=== PATIENT | female | born 1985 | race Caucasian/White ===

== ENCOUNTER → 2016-10-06 | Outpatient (CLI) | payer OTHER, MEDICAID ==
[2016-10-06 20:24] LABS: CONTROL LINE HCG INT CTR LINE PRESENT
== END ==
LOC: M WUC 15:49
PROVIDERS: ATTEND Family Medicine
DX: N92.6 Irregular menstruation, unspecified (principal)
CPT/HCPCS: 36415; 84703; G0463

== ENCOUNTER → 2016-10-23 | Outpatient (CLI) | payer OTHER, MEDICAID ==
[2016-10-23 16:56] LABS: BASO % 0.5 % (0.0-1.0); EOS # 0.2 K/mm3 (0.0-0.50); EOS % 2.1 % (0.0-3.0); LARGE UNSTAINED CELL # 0.1 K/mm3 (0.0-0.4); LARGE UNSTAINED CELL % 1.8 % (0.0-4.0); MEAN CORPUSCULAR HEMOGLOBIN 30.4 pg (27.0-33.0); MEAN CORPUSCULAR HGB CONC 33.2 g/dl (32.0-36.5); MEAN CORPUSCULAR VOLUME 91.4 fl (80.0-96.0); MONO # 0.4 K/mm3 (0.0-0.8); MONO % 5.4 % (0.0-5.0); NEUTROPHILS # 4.9 K/mm3 (1.8-7.7); NEUTROPHILS % 65.3 % (36.0-66.0); PLATELET COUNT, AUTOMATED 246 k/mm3 (150-450); RED CELL DISTRIBUTION WIDTH 12.7 % (11.5-14.5); WHITE BLOOD COUNT 7.5 K/mm3 (4.0-10.0)
[2016-10-26 11:46] LABS: HBsAg Prenatal NEGATIVE (NEGATIVE)
== END ==
LOC: M WUC 10:48
PROVIDERS: ATTEND Obstetrics & Gynecology
DX: Z36 Encounter for antenatal screening of mother (principal); Z3A.00 Weeks of gestation of pregnancy not specified

== ENCOUNTER → 2016-11-24 | Outpatient (REF) | payer OTHER, MEDICAID | LOC: M LAB REF 17:20 | PROVIDERS: ATTEND Specialist | DX: Z36 Encounter for antenatal screening of mother (principal); Z3A.00 Weeks of gestation of pregnancy not specified ==

== ENCOUNTER → 2017-03-10 | Outpatient (CLI) | payer MEDICAID ==
--- NOTE | 2017-03-10 14:59 | REP ---
Clinical: Anatomical evaluation. Comparison: 01/18/2017 . Findings: Examination demonstrates a single live intrauterine in cephalic presentation. motion is identified by technologist. Placenta is noted anteriorly and grade one without evidence for placenta previa or abruption. Amniotic fluid volume is normal. Cervix measures 3.5 cm in length and appears closed. No evidence for nuchal cord. Gestational age by LMP 26 weeks 4 days with JEZ 06/12/2017 . Gestational age by current measurements 27 weeks 3 days with JEZ 06/06/2017 . FHR equals 136 beats per minute. Estimated weight 1096 grams ( 68th percentile). Anatomical assessment demonstrates normal structures including cranium, choroid plexus, cavum, cerebellum/posterior fossa, facial features, lungs, four-chamber heart/ventricular outflow tracts, diaphragm, stomach, cord insertion/three-vessel cord, kidneys/bladder, and extremities. Impression: Single live intrauterine in cephalic presentation demonstrating appropriate interval growth. In conjunction with prior examination anatomical assessment is complete and normal. Signed by Ludin Tapia MD 03/10/2017 02:51 P
== END ==
LOC: M RAD 14:07
PROVIDERS: ATTEND Advanced Practice Midwife
DX: Z34.82 Encounter for supervision of other normal pregnancy, second trimester (principal); Z3A.26 26 weeks gestation of pregnancy

== ENCOUNTER → 2017-04-15 | Outpatient (REF) | payer OTHER, MEDICAID | LOC: M LAB REF 17:12 | DX: Z34.83 Encounter for supervision of other normal pregnancy, third trimester (principal) ==

== ENCOUNTER → 2017-04-16 | Outpatient (CLI) | payer OTHER, MEDICAID ==
[2017-04-16 13:58] LABS: BASO % 0.2 % (0.0-1.0); EOS # 0.4 10^3/uL (0.0-0.50); EOS % 2.7 % (0.0-3.0); HEMATOCRIT 35.6 % (36.0-47.0); HEMOGLOBIN 11.9 g/dl (12.0-16.0); IMMATURE GRANULOCYTE # 0.1 10^3/uL (0-0); IMMATURE GRANULOCYTE % 0.8 % (0-0); LYMPH # 2.6 10^3/uL (1.5-4.5); LYMPH % 19.9 % (24.0-44.0); MEAN CORPUSCULAR HGB CONC 33.4 g/dl (32.0-36.5); MEAN CORPUSCULAR VOLUME 86.8 fl (80.0-96.0); MONO # 0.7 10^3/uL (0.0-0.8); MONO % 5.1 % (0.0-5.0); NEUTROPHILS # 9.4 10^3/uL (1.8-7.7); NEUTROPHILS % 71.3 % (36.0-66.0); PLATELET COUNT, AUTOMATED 235 10^3/uL (150-450); RED CELL DISTRIBUTION WIDTH 12.6 % (11.5-14.5); WHITE BLOOD COUNT 13.2 10^3/uL (4.0-10.0)
[2017-04-16 14:32] LABS: GLUCOSE CHALLENGE TEST 1 HOUR 125 MG/DL (LESS THAN 140)
== END ==
LOC: M SMT 09:45
DX: Z34.83 Encounter for supervision of other normal pregnancy, third trimester (principal)
CPT/HCPCS: 82950

== ENCOUNTER → 2017-05-17 | Outpatient (REF) | payer OTHER, MEDICAID | LOC: M LAB REF 16:59 | DX: Z34.83 Encounter for supervision of other normal pregnancy, third trimester (principal) ==

== ENCOUNTER → 2017-05-21 | Outpatient (CLI) | payer OTHER, MEDICAID | LOC: M RAD 14:10 | DX: Z34.83 Encounter for supervision of other normal pregnancy, third trimester (principal) ==

== ENCOUNTER 2017-06-11 15:46 | Inpatient (IN) | payer OTHER, MEDICAID ==
[2017-06-11] MEDS: OXYTOCIN DRIP 30 UNITS in APPROPRIATE DILUENT 1 EA IV ×2 (16:57→23:52)
[2017-06-11] MEDS: LR 1,000 ML IV (16:57)
[2017-06-11 17:29] LABS: HEMATOCRIT 35.5 % (36.0-47.0); HEMOGLOBIN 12.1 g/dl (12.0-15.5); MEAN CORPUSCULAR HEMOGLOBIN 29.2 pg (27.0-33.0); MEAN CORPUSCULAR HGB CONC 34.1 g/dl (32.0-36.5); MEAN CORPUSCULAR VOLUME 85.7 fl (80.0-96.0); PLATELET COUNT, AUTOMATED 242 10^3/uL (150-450); RED BLOOD COUNT 4.14 10^6/uL (4.00-5.40); RED CELL DISTRIBUTION WIDTH 13.7 % (11.5-14.5); WHITE BLOOD COUNT 12.2 10^3/uL (4.0-10.0)
[2017-06-11] MEDS ORDERED: FENTANYL 2MCG/ML ROPIVACAINE 0.2% IN 0.9% NACL 200ML IVBAG As Ordered (21:29)
[2017-06-11] MEDS ORDERED: EPIDURAL COMMENT XX (23:00)
[2017-06-11] MEDS ORDERED: NALOXONE INJ 0.4 MG/1 ML VIAL (J2310) IV (23:00)
[2017-06-11] MEDS ORDERED: FENTANYL/ROPIVACAINE/NACL BAG 200 ML EPIDURAL (23:00)
[2017-06-11] MEDS ORDERED: REFRIGERATOR IV KEYS XX (23:00)
[2017-06-11] MEDS ORDERED: LACTATED RINGER'S 1000 ML IV (23:00)
[2017-06-11] MEDS ORDERED: ONDANSETRON 4MG/2ML VIAL (J2405) IV (23:00)
[2017-06-11] MEDS ORDERED: EPIDURAL/PCA KEYS XX (23:00)
[2017-06-11] MEDS ORDERED: diphenhydrAMINE INJ 50MG/ML VIAL (J1200) IV (23:00)
[2017-06-11] MEDS ORDERED: ePHEDrine SULFATE 25 MG/5 ML(5MG/ML) SYRINGE IV (23:00)
[2017-06-12] MEDS ORDERED: METHYLERGONOVINE MALEATE 0.2 MG TAB PO
[2017-06-12] MEDS ORDERED: IBUPROFEN 800 MG TAB PO
[2017-06-12] MEDS ORDERED: ACETAMINOPHEN 500 MG TAB PO
[2017-06-12] MEDS ORDERED: RHOGAM 300 MCG (1500 IU) INJ (J2790) IM
[2017-06-12] MEDS ORDERED: DOCUSATE SODIUM 100 MG CAP PO
[2017-06-12] MEDS: METHYLERGONOVINE MALEATE 0.2 MG/ML VIAL (J2210) IM
[2017-06-12] MEDS ORDERED: MEASLES,MUMPS,RUBELLA VACCINE INJ (MMR-II) (90707) SC
[2017-06-12] MEDS ORDERED: DIBUCAINE 1% OINTMENT 30GM TOP
[2017-06-12] MEDS: PRENATAL VITAMINS CHEWABLE TABLET PO (09:24)
[2017-06-13] MEDS: PRENATAL VITAMINS CHEWABLE TABLET PO (09:00)
== END 2017-06-13 11:20 | disposition home or self-care (01) | DRG 767 ==
LOC: M LDI 15:46 → M OBS 06-12 02:27
PROVIDERS: Advanced Practice Midwife
PROC: 10D17Z9 Manual Extraction of Products of Conception, Retained, Via Natural or Artificial Opening (ICD-10-PCS; principal; 2017-06-11)
PROC: 10E0XZZ Delivery of Products of Conception, External Approach (ICD-10-PCS; 2017-06-11)
PROC: 10907ZC Drainage of Amniotic Fluid, Therapeutic from Products of Conception, Via Natural or Artificial Opening (ICD-10-PCS; 2017-06-11)
PROC: 3E033VJ Introduction of Other Hormone into Peripheral Vein, Percutaneous Approach (ICD-10-PCS; 2017-06-11)
DX: O36.63X0 Maternal care for excessive fetal growth, third trimester, not applicable or unspecified (principal); Z37.0 Single live birth; Z3A.39 39 weeks gestation of pregnancy; O73.1 Retained portions of placenta and membranes, without hemorrhage

== ENCOUNTER → 2019-05-30 | Outpatient (REF) | payer OTHER ==
[~2019-05-30] MED LIST: CALC500C PO; IBUP-1114 PO; MAPA500T2 PO; PRENTAB9 PO
[2019-05-30 18:08] LABS: HEMATOCRIT 39.6 % (36.0-47.0); HEMOGLOBIN 12.9 g/dl (12.0-15.5); MEAN CORPUSCULAR HEMOGLOBIN 27.5 pg (27.0-33.0); MEAN CORPUSCULAR HGB CONC 32.6 g/dl (32.0-36.5); MEAN CORPUSCULAR VOLUME 84.4 fl (80.0-96.0); PLATELET COUNT, AUTOMATED 283 10^3/uL (150-450); RED BLOOD COUNT 4.69 10^6/uL (4.00-5.40)
[2019-05-30 19:26] LABS: CHLAMYDIA DNA AMPLIFICATION NEGATIVE (NEGATIVE); GC DNA AMPLIFICATION NEGATIVE (NEGATIVE)
[2019-05-31 10:12] LABS: HEPATITIS B SURFACE ANTIGEN NEGATIVE (NEGATIVE); HEPATITIS C VIRUS ABY INDEX < 0.0 INDEX (<0.8); HIV 1&2 SCREEN CENTAUR NEGATIVE (NEGATIVE); RUBELLA IgG QUALITATIVE IMMUNE (IMMUNE)
== END ==
LOC: M PLALAB 13:41
PROVIDERS: ATTEND Advanced Practice Midwife
DX: Z34.91 Encounter for supervision of normal pregnancy, unspecified, first trimester (principal)

== ENCOUNTER → 2019-07-17 | Outpatient (CLI) | payer OTHER ==
--- NOTE | 2019-07-18 05:53 | REP ---
Clinical: Anatomical evaluation. Comparison: None Findings: Examination demonstrates a single live intrauterine in variable presentation. motion is identified by technologist. Placenta is noted right/posterolateral and grade I without evidence for placenta previa or abruption. Amniotic fluid volume is normal. Cervix measures 3.3 in length and appears closed. No evidence for nuchal cord. Gestational age by current measurements 18 weeks 1 day with JEZ 12/17/2019 . FHR equals 156 beats per minute. BPD 4.0 cm 18 weeks 0 days HC 14.7 cm 17 weeks 6 days AC 12.7 cm 18 weeks 2 days FL 2.5 cm 17 weeks 4 days HL 2.8 cm 19 weeks 1 day HC/AC ratio 1.16 Estimated weight 216 grams ( 39th percentile). Anatomical assessment demonstrates normal structures including cranium, cavum, cerebellum/posterior fossa, facial features, lungs, four-chamber heart/ventricular outflow tracts, diaphragm, stomach, cord insertion/three-vessel cord, kidneys/bladder, spine, and extremities. 3.5 mm left choroid plexus cyst noted. Impression: 1. Single live intrauterine in variable presentation demonstrating appropriate estimated weight. 2. Anatomical assessment is essentially complete and normal although left choroid plexus cyst is identified.
== END ==
LOC: M WHC 13:28
PROVIDERS: ATTEND Specialist
DX: Z34.82 Encounter for supervision of other normal pregnancy, second trimester (principal); Z36.89 Encounter for other specified antenatal screening; Z3A.18 18 weeks gestation of pregnancy

== ENCOUNTER → 2019-09-20 | Outpatient (REF) | payer OTHER ==
[~2019-09-20] MED LIST changes: +IBUP80TA PO; +TUMS750C5 PO
[2019-09-20 11:39] LABS: HEMOGLOBIN 9.9 g/dl (12.0-15.5); MEAN CORPUSCULAR HEMOGLOBIN 27.3 pg (27.0-33.0); MEAN CORPUSCULAR HGB CONC 31.9 g/dl (32.0-36.5); MEAN CORPUSCULAR VOLUME 85.4 fl (80.0-96.0); PLATELET COUNT, AUTOMATED 250 10^3/uL (150-450); RED BLOOD COUNT 3.63 10^6/uL (4.00-5.40); WHITE BLOOD COUNT 8.8 10^3/uL (4.0-10.0)
== END ==
LOC: M PLALAB 08:52
PROVIDERS: ATTEND Advanced Practice Midwife
DX: Z34.82 Encounter for supervision of other normal pregnancy, second trimester (principal)

== ENCOUNTER → 2019-11-14 | Outpatient (REF) | payer OTHER | LOC: M WHC 14:00 | PROVIDERS: ATTEND Advanced Practice Midwife | DX: Z34.83 Encounter for supervision of other normal pregnancy, third trimester (principal) ==

== ENCOUNTER 2019-12-08 11:42 | Inpatient (IN) | payer OTHER ==
[~2019-12-08] VITALS: Ht 152.4 cm; Wt 92.2 kg
[2019-12-08] VITALS (18 sets, daily range): BP systolic 102–123; BP diastolic 57–80
[~2019-12-08 11:42] MED LIST changes: -IBUP80TA PO; -TUMS750C5 PO
[2019-12-08] MEDS ORDERED: TUMS750C5 PO (11:55)
[2019-12-08] MEDS ORDERED: LACTATED RINGER'S 1000 ML IV STA (12:43)
--- NOTE | 2019-12-08 12:59 | HPEPDOC ---
Obstetrical History & Physical General Date of Admission Dec 08, 2019 at 11:42 History of Present Illness Chief Complaint: Induction of labor (elective) Information Provided By: Patient Age: 34 : 5 Term: 3 Pre-term: 0 Abortions: 1 Livin Care Care: Good Care Dating Final EDC: Dec 13, 2019 Final EDC by: LMP LMP: Mar 08, 2019 EGA at Admission: 39.2 Antepartum Course Height (inches): 60 Pre- weight (lbs.): 210 Admission Weight (lbs.): 203 Past Medical History Past Obstetrical History #1: Past Obstetrical History: Primgravida Date of Delivery: Sep 06, 2006 Type of Delivery: Spontaneous Vaginal Del. Sex of Infant: Female (9#7oz) Complications: Yes (PPH) Past Obstetrical History #2: Past Obstetrical History: Multigravida Date of Delivery: Mar 23, 2009 Type of Delivery: Spontaneous Vaginal Del. Sex of Infant: Male (9#5oz) Complications: Yes (PPH) Past Obstetrical History #3: Past Obstetrical History: Multigravida Date of Delivery: Jun 11, 2017 Type of Delivery: Spontaneous Vaginal Del. Sex of Infant: Female (6#12oz) Complications: No [employer] History: Spontaneous (2003) Past Medical History Medical History Migraines Surgical History: Denies/None Family History Significant Family History: Diabetes (Mother and Father), Hypertension (Mother and Father) Social History Marital Status: Family situation: Spouse/partner home Psychosocial History: No pertinent psych hx * Smoker: non-smoker Alcohol: Denies Drugs: denies Allergies Coded Allergies: latex (Verified Allergy, Intermediate, HIVES, 12/08/19) Penicillins (Verified Adverse Reaction, Mild, VOMITING AND DIZZINESS, 12/08/19) Medications Scheduled No.137/Iron/Folic Acd ( Vitamin Tablet) 1 Tab Tab, 1 TAB PO DAILY Scheduled PRN Calcium Carbonate (Tums) 300 Mg Tab.chew, 750 MG PO Q4HP PRN for HEARTBURN Physical Examination Physical Examination GENERAL: Alert and oriented times three. BREAST: . ABDOMEN: Gravid and non-tender to touch. FETUS: Is vertex (VTX) by sterile vaginal examination (SVE), fetus is vertex (VTX) by [place]. EFW 7-7.5lbs HEART RATE: Regular rate and rhythm. LUNGS: Clear to auscultation (CTA). EXTREMITIES: Mild non-pitting BLE to knees. No clonus. Deep tendon reflexes (DTRs) + 2. Laboratory Data 24H LABS Laboratory Tests 2 12/08/19 11:54: Serology Scanned Report Hepatitis B Testing Pertinent Laboratoy Data Blood Type: A+ RBC Antibody Screen: Negative HIV: Negative Hepatitis B: Negative Hepatitis C: Negative Rapid Plasma Reagin: Nonreactive Rubella: Immune Varicella: Unknown Chlamydia/Gonorrhea: Negative Group B Streptococcus: Negative Glucose Tolerance Test: 103 Anatomy Ultrasound Ultrasound Date: July 17, 2019 Placenta Location: Posterior Normal Anatomy: Yes Placenta Previa: No Estimated Weight (grams): 216 Steroid Therapy Steroid Therapy: No Vaginal Examination Dilation: 2cm Effacement: 50% Station: -3 Cervical Consistency: Soft Cervical Position: Middle Presentation: Cephalic presentation Assessment Heart Rate (FHR): 140 Variability: Moderate Accelerations: Positive Decelerations: None Tocometer Contractions: No Multi-drug resistant Organism: No history of MDRO Assessment/Plan Assessment Lorena is a 34-year-old (G)5 para (P)3-0-1-3 at 39+2 weeks by LMP. Presents to Labor and Delivery (L&D) for elective IOL per consult Dr Mcdowell. Denies LOF, VB, and contractions. States good FM. Plan Admit and orient. Bundle Shaker and consent. Diet: Regular. Group B Streptococcus (GBS) negative. Labs and intravenous (IV) per unit protocol. Counseled on Cooks Catheter, Pitocin and induction of labor (IOL). Plans for natural labor but open to an epidural. Lactated Ringers (LR): Bolus 500 mL, then saline lock. Anticipate normal spontaneous delivery (). C-S as appropriate. Lauren Adair CNM Dec 08, 2019 12:59
[2019-12-08 13:14] LABS: HEMATOCRIT 26.8 % (36.0-47.0); HEMOGLOBIN 8.3 g/dl (12.0-15.5); MEAN CORPUSCULAR HEMOGLOBIN 23.5 pg (27.0-33.0); MEAN CORPUSCULAR VOLUME 75.9 fl (80.0-96.0); PLATELET COUNT, AUTOMATED 267 10^3/uL (150-450); RED BLOOD COUNT 3.53 10^6/uL (4.00-5.40)
--- NOTE | 2019-12-08 14:29 | IPNPDOC ---
Text Note Date of Service The patient was seen on 12/08/19. NOTE Progress Informed consent received for Cooks Catheter placement. SVE 250/-3, soft, midposition. Cook's catheter placed digitally with success on 1st attempt by REMI Azul. Uterine balloon filled with 60mL NS and Vaginal balloon filled with 40mL NS. Cooks to tension. Placement double checked by ALLY Paige. Patient tolerated procedure well. FHR Cat 1 135 baseline. Occasional contractions noted on EFM, patient denies feeling them. Pitocin to be started. Dr Mcdowell updated VS,Amy, I+O VS, Ivanae, I+O Laboratory Tests 12/08/19 12:53 Lauren Adair CNM Dec 08, 2019 14:29
[2019-12-08] MEDS ORDERED: OXYTOCIN DRIP 30 UNITS in IV 1 EA IV SCH (14:30)
[2019-12-08] MEDS: LR 1,000 ML IV SCH ×2 (15:42→22:22)
[2019-12-08] MEDS ORDERED: CALCIUM CARBONATE 500 MG CHEW U/D PO PRN (16:45)
--- NOTE | 2019-12-08 17:04 | IPNPDOC ---
Text Note Date of Service The patient was seen on 12/08/19. NOTE Progress Cooks catheter spontaneously expelled while in BR. Feeling contractions more frequently and stronger. Talking through contractions. SVE 4-5/70/-2 by REMI Azul Cat. 1 FHR, 130bpm baseline. Contractions by [place] 2-4min apart, 60-80sec. long, moderate per patient. Pitocin at 6mu/min. Plan to continue with Pitocin. VS,Fishbone, I+O VS, Fishbone, I+O Laboratory Tests 12/08/19 12:53 Lauren Adair CNM Dec 08, 2019 17:04
--- NOTE | 2019-12-08 19:24 | IPNPDOC ---
Text Note Date of Service The patient was seen on 12/08/19. NOTE Progress States good FM, and contractions are becoming more intense. States no VB, LOF. SVE 6-//-1, stretchy, anterior cervix. AROM, clear fluid at 1914 by REMI Azul. Cat. 1 FHR tracing, 125bpm baseline Contractions every 3-4min, 60-80second by TOCO, moderate on palpation. Continue Pitocin, currently 6mu. Plan for . VS,Fishbone, I+O VS, Fishbone, I+O Laboratory Tests 12/08/19 12:53 Lauren Adair CNM Dec 08, 2019 19:24
[2019-12-08] MEDS ORDERED: CALCIUM CARBONATE 500 MG CHEW U/D PO SCH (21:00)
--- NOTE | 2019-12-08 23:54 | IPNPDOC ---
Text Note Date of Service The patient was seen on 12/08/19. NOTE Progress States contractions and pressure increasing intensity. States good FM. Position changes being made often. Minimal bloody show seen on pads, large amount of clear fluid noted. SVE /-1 by REMI Azul. Cat 1 FHR tracing, 135bpm baseline. UC 2-3min, 80-90sec. by TOCO, moderate on palpation. Pitocin currently at 10mu/min. Anticipate SVB. VS,Fishbone, I+O VS, Fishbone, I+O Laboratory Tests 12/08/19 12:53 Vital Signs Date Time Temp Pulse Resp B/P (MAP) Pulse Ox O2 Delivery O2 Flow Rate FiO2 12/08/19 19:37 93 114/65 (81) Lauren Adair CNM Dec 08, 2019 23:54
[2019-12-09] VITALS (10 sets, daily range): BP systolic 105–127; BP diastolic 61–71
--- NOTE | 2019-12-09 01:30 | IPNPDOC ---
Text Note Date of Service The patient was seen on 12/09/19. NOTE Progress Feeling more constant pressure, increasing with contractions. Breathing through contractions well. SVE 8/100/0, anterior, stretchy by REMI Azul with informed consent. Some bloody show on glove with exam. Cat 1 FHR 140baseline UC by TOCO 2-3 min. 60-100sec., moderate on palpation. Pitocin currently at 10mu/min. Position changes and voiding encouraged. Anticipate NSVB. VS,Fishbone, I+O VS, Fishbone, I+O Laboratory Tests 12/08/19 12:53 Vital Signs Date Time Temp Pulse Resp B/P (MAP) Pulse Ox O2 Delivery O2 Flow Rate FiO2 12/09/19 00:08 95 117/70 (86) I&O- Last 24 Hours up to 6 AM 12/09/19 06:00 Intake Total 1027 ml Balance 1027 ml Lauren Adair CNM Dec 09, 2019 01:30
[2019-12-09] MEDS ORDERED: METHYLERGONOVINE MALEATE 0.2 MG/ML VIAL (J2210) As Ordered ONE (02:12)
[2019-12-09] MEDS ORDERED: OXYTOCIN DRIP 30 UNITS in IV 1 EA IV SCH (02:36)
--- NOTE | 2019-12-09 02:36 | DNPDOC ---
[facility] Delivery Note Delivery Note DATE OF DELIVERY: 12/09/2019 PREDELIVERY DIAGNOSIS: 39-3/7 weeks' gestation and labor. POST DELIVERY DIAGNOSIS: Delivered. PROCEDURE: Spontaneous vaginal . PROVIDER: ALLY Paige/REMI Azul ANESTHESIA: None. ESTIMATED BLOOD LOSS: 800 mL. FINDINGS: 7 pound 15 ounce, 3600g Male , Score 9/9. DELIVERY SUMMARY: Patient is a 34-year-old 5 now para 4-0-1-4 who was admitted to labor and delivery for elective induction. Labor was started with a Cooks catheter and Pitocin. AROM for clear fluid at 1914, and then progressed to FD at 0149. Delivered a viable Male "Markov" VIOLETA over an intact perineum, and placed skin to skin on maternal abdomen. 9/9, weight 3600g, 7#15oz. Cord blood obtained, 3VC. Active Management of Second Stage of Labor with Pitocin IV, cord traction, and uterine guarding. Multiple large gushes of blood prior to placental release. Placenta delivered spontaneously with maternal pushing efforts, martinez mechanism at 0207. Bleeding controlled with Pitocin bolus started after delivery of placenta, Cytotec 1000mcg DE, and Methergine 0.2mg IM given. Perineal, vaginal, and cervix examined and no tears noted. Sponge, sharp, instrument count correct. EBL 800mL. Mom and baby bonding following delivery, both in stable condition. Lauren Adair CNM Dec 09, 2019 02:36
[2019-12-09] MEDS ORDERED: DOCUSATE SODIUM 100MG CAPSULE PO PRN (02:45)
[2019-12-09] MEDS ORDERED: IBUPROFEN 600MG TAB PO PRN (02:45)
[2019-12-09] MEDS ORDERED: RHOGAM 300 MCG (1500 IU) INJ (J2790) IM SCH (02:45)
[2019-12-09] MEDS ORDERED: ANUSOL HC CREAM 30GM TOP PRN (02:45)
[2019-12-09] MEDS ORDERED: MOM 30ML SUSPENSION UDC PO PRN (02:45)
[2019-12-09] MEDS ORDERED: IBUPROFEN 800 MG TAB PO PRN (02:45)
[2019-12-09] MEDS ORDERED: miSOPROStol 200 MCG TAB (S0191) PR ONE (02:45)
[2019-12-09] MEDS ORDERED: DIBUCAINE 1% OINTMENT 30GM TOP PRN (02:45)
[2019-12-09] MEDS ORDERED: MEASLES,MUMPS,RUBELLA VACCINE INJ (MMR-II) (90707) SC SCH (02:45)
[2019-12-09] MEDS ORDERED: ACETAMINOPHEN TAB 650MG DOSE (2X325MG) PO PRN (02:45)
[2019-12-09] MEDS ORDERED: ACETAMINOPHEN 500 MG TAB PO PRN (02:45)
[2019-12-09] MEDS ORDERED: METHYLERGONOVINE MALEATE 0.2 MG/ML VIAL (J2210) IM ONE (02:45)
[2019-12-09 08:19] LABS: HEMATOCRIT 24.5 % (36.0-47.0); HEMOGLOBIN 7.5 g/dl (12.0-15.5); MEAN CORPUSCULAR HEMOGLOBIN 23.4 pg (27.0-33.0); MEAN CORPUSCULAR HGB CONC 30.6 g/dl (32.0-36.5); MEAN CORPUSCULAR VOLUME 76.6 fl (80.0-96.0); PLATELET COUNT, AUTOMATED 218 10^3/uL (150-450); WHITE BLOOD COUNT 14.6 10^3/uL (4.0-10.0)
[2019-12-09] MEDS: METHYLERGONOVINE MALEATE 0.2 MG TAB PO SCH ×3 (08:25→20:04)
[2019-12-09] MEDS: PRENATAL VITAMINS CHEWABLE TABLET PO SCH (08:25)
[2019-12-09] MEDS ORDERED: INFLUENZA QUADRIVALENT PF VACCINE 0.5ML SYRINGE IM ONE (09:00)
[2019-12-10] MEDS: METHYLERGONOVINE MALEATE 0.2 MG TAB PO SCH (02:21)
[2019-12-10 06:00] VITALS: BP 98/64
--- NOTE | 2019-12-10 08:07 | IPNPDOC ---
Progress Note Date of Service: Dec 10, 2019 Day#: 1 Progress Note PPD 1 SUBJECT: Lorena is a 34-year-old 5 now para 4-0-1-4 who was admitted to labor and delivery for elective induction and had an uncomplicated spontaneous vaginal delivery, doing well day #1. She has been ambulating, voiding spontaneously without issue and tolerating regular diet. Breast feeding without issue. Reports lochia is like a normal period. No f/c/n/v/CP/SOB. OBJECTIVE: VITAL SIGNS: Within normal limits, afebrile. Alert and oriented times three. Abdomen: Fundus firm at U-2. Soft, NTTP. Extremities: trace edema of BLE ASSESSMENT: Lorena is a 34-year-old 5 now para 4-0-1-4 who was admitted to labor and delivery for elective induction and had an uncomplicated spontaneous vaginal delivery, doing well day #1. Vitals within normal limits, afebrile, hemodynamically stable with no evidence of infection. PLAN: 1. Discharge to home today. 2. Tylenol and Motrin for pain. 3. Encourage breast feeding and ambulation. 4. Would like paragard for contraception 5. Routine PP visit in 6 weeks in clinic. 6. Discussed return precautions at length. Alanna Mcdowell MD VS, I&O, 24H, Fishbone Vital Signs/I&O Vital Signs Date Time Temp Pulse Resp B/P (MAP) Pulse Ox O2 Delivery O2 Flow Rate FiO2 12/10/19 06:00 97.6 78 16 98/64 (75) 12/09/19 18:00 97 Room Air Alanna Mcdowell MD Dec 10, 2019 08:07
[2019-12-10] MEDS ORDERED: IBUP80TA PO (08:09)
--- NOTE | 2019-12-10 08:11 | DS.PDOC ---
Discharge Summary General Date of Admission Dec 08, 2019 at 11:42 Date of Discharge 12/10/2019 Discharge Summary PROCEDURES PERFORMED DURING STAY: spontaneous vaginal delivery ADMITTING DIAGNOSES: 1. Term SIUP, elective IOL DISCHARGE DIAGNOSES: 1. Term SIUP, delivered COMPLICATIONS/CHIEF COMPLAINT: Induction. HISTORY OF PRESENT ILLNESS/HOSPITAL COURSE: Lorena is a 34-year-old 5 now para 4-0-1-4 who was admitted to labor and delivery for elective induction and had an uncomplicated spontaneous vaginal delivery, doing well day #1. At time of discharge, vitals were within normal limits, afebrile, hemodynamically stable with no evidence of infection. DISCHARGE MEDICATIONS: Please see below. ALLERGIES: Please see below. PHYSICAL EXAMINATION ON DISCHARGE: VITAL SIGNS: Within normal limits, afebrile. Alert and oriented times three. Abdomen: Fundus firm at U-2. Soft, NTTP. Extremities: trace edema of BLE LABORATORY DATA: Please see below. ACTIVITY: As tolerated, vaginal rest and no heavy lifting 6 weeks DIET: regular DISPOSITION: home DISCHARGE PLAN/INSTRUCTIONS: 1. Discharge to home today. 2. Tylenol and Motrin for pain. 3. Encourage breast feeding and ambulation. 4. Would like paragard for contraception 5. Routine PP visit in 6 weeks in clinic. 6. Discussed return precautions at length. DISCHARGE CONDITION: Stable TIME SPENT ON DISCHARGE: Greater than 20 minutes. Alanna Mcdowell MD Vital Signs/I&Os Vital Signs Date Time Temp Pulse Resp B/P (MAP) Pulse Ox O2 Delivery O2 Flow Rate FiO2 12/10/19 06:00 97.6 78 16 98/64 (75) 12/09/19 18:00 97 Room Air Discharge Medications Scheduled No.137/Iron/Folic Acd ( Vitamin Tablet) 1 Tab Tab, 1 TAB PO DAILY, (Reported) Scheduled PRN Calcium Carbonate (Tums) 300 Mg Tab.chew, 750 MG PO Q4HP PRN for HEARTBURN, (Reported) Ibuprofen (Ibuprofen) 800 Mg Tablet, 800 MG PO Q8HP PRN for PAIN LEVEL 6-10 Allergies Coded Allergies: latex (Verified Allergy, Intermediate, HIVES, 12/08/19) Penicillins (Verified Adverse Reaction, Mild, VOMITING AND DIZZINESS, 12/08/19) Alanna Mcdowell MD Dec 10, 2019 08:11
[2019-12-10] MEDS ORDERED: METHYLERGONOVINE MALEATE 0.2 MG TAB PO PRN (08:15)
[2019-12-10] MEDS: PRENATAL VITAMINS CHEWABLE TABLET PO SCH (08:38)
== END 2019-12-10 11:35 | disposition home or self-care (01) | DRG 560 ==
LOC: M LDI 11:42 → M OBS 12-09 04:25
PROVIDERS: ADMIT Advanced Practice Midwife; ATTEND Advanced Practice Midwife
PROC: 3E033VJ Introduction of Other Hormone into Peripheral Vein, Percutaneous Approach (ICD-10-PCS; 2019-12-08)
PROC: 10E0XZZ Delivery of Products of Conception, External Approach (ICD-10-PCS; principal; 2019-12-09)
PROC: 10907ZC Drainage of Amniotic Fluid, Therapeutic from Products of Conception, Via Natural or Artificial Opening (ICD-10-PCS; 2019-12-09)
DX: O72.1 Other immediate postpartum hemorrhage (principal); Z37.0 Single live birth; Z3A.39 39 weeks gestation of pregnancy

== ENCOUNTER → 2021-01-23 | Outpatient (REF) | payer OTHER, MEDICAID ==
[~2021-01-23] MED LIST changes: -CALC500C PO; +IBUP80TA PO; +RA A500C4 PO; +TUMS750C5 PO
== END ==
LOC: M SFHCWAGY 13:24
PROVIDERS: ATTEND Advanced Practice Midwife
DX: Z12.4 Encounter for screening for malignant neoplasm of cervix (principal)

== ENCOUNTER → 2021-03-24 | Outpatient (CLI) | payer OTHER, MEDICAID | LOC: M WHC 13:52 | PROVIDERS: ATTEND Obstetrics & Gynecology | DX: Z34.82 Encounter for supervision of other normal pregnancy, second trimester (principal); Z23 Encounter for immunization; Z3A.19 19 weeks gestation of pregnancy ==

== ENCOUNTER → 2021-03-26 | Outpatient (CLI) | payer OTHER, MEDICAID ==
[2021-03-26 13:57] LABS: BASO % 0.4 % (0.0-1.0); EOS # 0.3 10^3/uL (0.0-0.5); EOS % 2.6 % (0.0-3.0); HEMATOCRIT 35.8 % (36.0-47.0); HEMOGLOBIN 11.6 g/dl (12.0-15.5); LYMPH # 2.2 10^3/uL (1.5-5.0); LYMPH % 20.6 % (24.0-44.0); MEAN CORPUSCULAR HGB CONC 32.4 g/dl (32.0-36.5); MEAN CORPUSCULAR VOLUME 83.3 fl (80.0-96.0); MONO # 0.7 10^3/uL (0.0-0.8); MONO % 6.9 % (2.0-8.0); NEUTROPHILS # 7.3 10^3/uL (1.5-8.5); NEUTROPHILS % 69.1 % (36.0-66.0); PLATELET COUNT, AUTOMATED 289 10^3/uL (150-450); WHITE BLOOD COUNT 10.5 10^3/uL (4.0-10.0)
[2021-03-26 15:26] LABS: GC DNA AMPLIFICATION NEGATIVE (NEGATIVE)
[2021-03-26 16:37] LABS: GLUCOSE CHALLENGE TEST 1 HOUR 90 MG/DL (LESS THAN 140)
[2021-03-26 17:30] LABS: HEPATITIS C VIRUS ABY INDEX < 0.0 INDEX (<0.8); HIV 1&2 SCREEN CENTAUR NEGATIVE (NEGATIVE)
== END ==
LOC: M PLALAB 09:06
PROVIDERS: ATTEND Advanced Practice Midwife
DX: Z36.89 Encounter for other specified antenatal screening (principal); Z3A.11 11 weeks gestation of pregnancy

== ENCOUNTER → 2021-04-17 | Outpatient (CLI) | payer OTHER, MEDICAID | LOC: M WHC 09:51 | PROVIDERS: ATTEND Advanced Practice Midwife | DX: Z36.2 Encounter for other antenatal screening follow-up (principal); Z3A.23 23 weeks gestation of pregnancy ==

== ENCOUNTER → 2021-06-03 | Outpatient (CLI) | payer OTHER ==
[2021-06-03 15:02] LABS: HEMATOCRIT 31.6 % (36.0-47.0); MEAN CORPUSCULAR HEMOGLOBIN 26.3 pg (27.0-33.0); MEAN CORPUSCULAR HGB CONC 31.6 g/dl (32.0-36.5); MEAN CORPUSCULAR VOLUME 83.2 fl (80.0-96.0); PLATELET COUNT, AUTOMATED 305 10^3/uL (150-450); WHITE BLOOD COUNT 11.2 10^3/uL (4.0-10.0)
== END ==
LOC: M PLALAB 12:38
PROVIDERS: ATTEND Advanced Practice Midwife
DX: O99.212 Obesity complicating pregnancy, second trimester (principal)

== ENCOUNTER → 2021-07-25 | Outpatient (REF) | payer OTHER, MEDICAID | LOC: M PLALAB 11:17 | PROVIDERS: ATTEND Obstetrics & Gynecology | DX: Z34.83 Encounter for supervision of other normal pregnancy, third trimester (principal); Z36.89 Encounter for other specified antenatal screening; Z3A.37 37 weeks gestation of pregnancy ==

== ENCOUNTER → 2024-01-20 | Outpatient (REF) | payer OTHER, MEDICAID ==
[~2024-01-20] MED LIST changes: +FERR325T3 PO
[2024-01-20 19:23] LABS: ALBUMIN 3.6 G/DL (3.2-5.2); ALKALINE PHOSPHATASE 96 U/L (35-104); ALT/SGPT 25 U/L (7.0-40); AST/SGOT 18 U/L (<34); BILIRUBIN,TOTAL 0.6 MG/DL (0.3-1.2); BLOOD UREA NITROGEN 8 MG/DL (9-23); CALCIUM LEVEL 9.3 MG/DL (8.5-10.1); CARBON DIOXIDE LEVEL 23 MMOL/L (20-31); CHLORIDE LEVEL 108 MMOL/L (98-107); CHOLESTEROL LEVEL 186 MG/DL (<200); CHOLESTEROL RISK RATIO 4.02 (<5); CREATININE FOR GFR 0.62 MG/DL (0.55-1.30); GLOMERULAR FILTRATION RATE > 60.0 (>60); GLUCOSE, FASTING 85 MG/DL (60-100); HDL CHOLESTEROL 46.2 MG/DL (>40); LDL CHOLESTEROL 113.2 MG/DL (<100); NON-HDL-C 139.8 MG/DL; SODIUM LEVEL 135 MMOL/L (136-145); TOTAL PROTEIN 7.7 G/DL (5.7-8.2); TRIGLYCERIDES LEVEL 133 MG/DL (<150)
[2024-01-20 19:25] LABS: THYROID STIMULATING HORMONE 1.069 uIU/ML (0.55-4.78)
[2024-01-20 19:26] LABS: TOTAL 25(OH) VITAMIN D 17.4 NG/ML (20.0-100.0)
[2024-01-20 19:50] LABS: HCG, SERUM QUANTITATIVE 70349.8 MIU/ML (<4.2)
== END ==
LOC: M LAB REF 16:25
PROVIDERS: ATTEND Physician Assistant
DX: Z11.9 Encounter for screening for infectious and parasitic diseases, unspecified (principal); E66.9 Obesity, unspecified; E55.9 Vitamin D deficiency, unspecified; N92.5 Other specified irregular menstruation

== ENCOUNTER → 2024-03-30 | Outpatient (CLI) | payer OTHER ==
[2024-03-30 15:09] LABS: HEMATOCRIT 35.6 % (36.0-47.0); MEAN CORPUSCULAR HGB CONC 33.7 g/dl (32.0-36.5); PLATELET COUNT, AUTOMATED 218 10^3/uL (150-450); RED BLOOD COUNT 4.14 10^6/uL (4.00-5.40); WHITE BLOOD COUNT 8.4 10^3/uL (4.0-10.0)
[2024-03-30 16:39] LABS: GC DNA AMPLIFICATION NEGATIVE (NEGATIVE)
[2024-03-30 18:45] LABS: URIC ACID 3.8 MG/DL (3.1-7.8)
[2024-03-30 18:48] LABS: LDH LACTATE DEHYDROGENASE 165 U/L (120-246)
[2024-03-30 18:49] LABS: ALT/SGPT 49 U/L (7.0-40); AST/SGOT 37 U/L (<34); BILIRUBIN,TOTAL 0.4 MG/DL (0.3-1.2); CREATININE FOR GFR 0.47 MG/DL (0.55-1.30); GLOMERULAR FILTRATION RATE > 60.0 (>60)
[2024-03-30 18:54] LABS: CREATININE,RANDOM URINE 64.9 MG/DL
[2024-03-30 19:22] LABS: HIV 1&2 SCREEN NEGATIVE (NEGATIVE)
[2024-03-30 19:28] LABS: HEPATITIS C VIRUS ABY INDEX < 0.02 INDEX (<0.8)
== END ==
LOC: M PLALAB 11:56
PROVIDERS: ATTEND Nurse Practitioner Family
DX: O09.521 Supervision of elderly multigravida, first trimester (principal); Z3A.00 Weeks of gestation of pregnancy not specified

== ENCOUNTER → 2024-04-27 | Outpatient (REF) | payer MEDICAID, OTHER | LOC: M SFHCWAGY 12:22 | PROVIDERS: ATTEND Nurse Practitioner Family | DX: Z34.82 Encounter for supervision of other normal pregnancy, second trimester (principal) ==

== ENCOUNTER → 2024-05-03 | Outpatient (CLI) | payer OTHER | LOC: M WHC 12:42 | PROVIDERS: ATTEND Nurse Practitioner Family | DX: Z34.82 Encounter for supervision of other normal pregnancy, second trimester (principal); Z3A.22 22 weeks gestation of pregnancy ==

== ENCOUNTER → 2024-05-24 | Outpatient (REF) | payer MEDICAID, OTHER | LOC: M SFHCWAGY 12:58 | PROVIDERS: ATTEND Obstetrics & Gynecology | DX: Z34.82 Encounter for supervision of other normal pregnancy, second trimester (principal) ==

== ENCOUNTER → 2024-06-20 | Outpatient (CLI) | payer OTHER ==
[2024-06-20 14:05] LABS: HEMATOCRIT 32.1 % (36.0-47.0); HEMOGLOBIN 10.3 g/dl (12.0-15.5); MEAN CORPUSCULAR HEMOGLOBIN 27.8 pg (27.0-33.0); MEAN CORPUSCULAR HGB CONC 32.1 g/dl (32.0-36.5); MEAN CORPUSCULAR VOLUME 86.5 fl (80.0-96.0); PLATELET COUNT, AUTOMATED 259 10^3/uL (150-450); RED BLOOD COUNT 3.71 10^6/uL (4.00-5.40); WHITE BLOOD COUNT 8.3 10^3/uL (4.0-10.0)
[2024-06-20 14:26] LABS: GLUCOSE CHALLENGE TEST 1 HOUR 121 MG/DL (LESS THAN 140)
[2024-06-20 14:30] LABS: Trichomonas vaginalis (AMP) NOT DETECTED (NEGATIVE)
[2024-06-20 14:53] LABS: GC DNA AMPLIFICATION NEGATIVE (NEGATIVE)
[2024-06-20 14:55] LABS: HIV 1&2 SCREEN NEGATIVE (NEGATIVE)
[2024-06-20 15:02] LABS: HEPATITIS C VIRUS ABY INDEX 0.03 INDEX (<0.8)
== END ==
LOC: M PLALAB 11:00
PROVIDERS: ATTEND Nurse Practitioner Family
DX: Z34.82 Encounter for supervision of other normal pregnancy, second trimester (principal)

== ENCOUNTER → 2024-06-22 | Outpatient (CLI) | payer OTHER | LOC: M WHC 07:41 | PROVIDERS: ATTEND Nurse Practitioner Family | DX: O26.843 Uterine size-date discrepancy, third trimester (principal); Z3A.29 29 weeks gestation of pregnancy ==

== ENCOUNTER → 2024-07-27 | Outpatient (CLI) | payer OTHER | LOC: M WHC 13:32 | PROVIDERS: ATTEND Nurse Practitioner Family | DX: O40.3XX0 Polyhydramnios, third trimester, not applicable or unspecified (principal); Z3A.34 34 weeks gestation of pregnancy ==

== ENCOUNTER → 2024-08-03 | Outpatient (REF) | payer OTHER, MEDICAID | LOC: M PLALAB 10:04 | PROVIDERS: ATTEND Advanced Practice Midwife | DX: Z34.83 Encounter for supervision of other normal pregnancy, third trimester (principal) ==